=== PATIENT | male | born 1955 | race Caucasian/White ===

== ENCOUNTER 2017-05-01 06:22 | Day surgery (SDC) | payer BC ==
--- NOTE | ~2017-05-01 | EGD ---
EGD REPORT [facility] [address] [place] [address] NAME: SHERWIN WHEELER : [birth year] STATUS : REG [facility]#: [id number] AGE: 62 ADM/REG DATE : 05/01/17 MR#: [id number] REPORT SERV DATE: 05/01/17 DICTATED BY: ELZBIETA WIGGINS DATE: 05/01/17 REPORT STATUS : Draft TRANSCRIBED BY: [facility] DATE: 05/01/17 Endoscopy Center Patient Name: Sherwin Wheeler Date of : 1955 Attending MD: ELZBIETA WIGGINS MD Procedure Date No Time: 05/01/2017 Procedure: Colonoscopy Indications: Screening for colorectal malignant neoplasm Referring MD: Juan CLARK MD Medicines: as per anesthesia Complications: No immediate complications. Procedure: Pre-Anesthesia Assessment: - ASA Grade Assessment: III - A patient with severe systemic disease. After I obtained informed consent, the scope was passed under direct vision. Throughout the procedure, the patient's blood pressure, pulse, and oxygen saturations were monitored continuously. The PCF [id number] was introduced through the anus and advanced to the cecum, identified by appendiceal orifice and ileocecal valve. The colonoscopy was performed without difficulty. The patient tolerated the procedure. The quality of the bowel preparation was adequate to identify polyps. Findings: The perianal and digital rectal examinations were normal. Internal hemorrhoids were found during endoscopy and were mild. Impression: - Internal hemorrhoids. Recommendation: - Repeat colonoscopy in 10 years for surveillance. Procedure Code(s): --- Professional --- 92423, Colonoscopy, flexible, proximal to splenic flexure; diagnostic, with or without collection of specimen(s) by brushing or washing, with or without colon decompression (separate procedure) Diagnosis Code(s): --- Professional --- K64.8, Other hemorrhoids Z12.11, Encounter for screening for malignant neoplasm of colon CPT copyright 2013 [employer]. All rights reserved. EGD REPORT [facility] [address] [address] NAME: SHERWIN WHEELER : [birth year] STATUS : REG [facility]#: [id number] AGE: 62 ADM/REG DATE : 05/01/17 MR#: [id number] REPORT SERV DATE: 05/01/17 DICTATED BY: ELZBIETA WIGGINS. DATE: 05/01/17 REPORT STATUS : Draft TRANSCRIBED BY: [employer] DATE: 05/01/17 The codes documented in this report are preliminary and upon accounts payable analyst review may be revised to meet current compliance requirements. ELZBIETA WIGGINS MD 05/01/2017 8:04 AM This report has been signed electronically. Number of Addenda: 0 Note Initiated On: 05/01/2017 7:36 AM Scope Withdrawal Time 0 hours 6 minutes 47 seconds [address] [id number]
--- NOTE | ~2017-05-01 | EGD ---
EGD REPORT [facility] [address] [place] [address] NAME: GERONIMO WHEELER : [birth year] STATUS : REG [facility]#: [id number] AGE: 62 ADM/REG DATE : 05/01/17 MR#: [id number] REPORT SERV DATE: 05/01/17 DICTATED BY: ELZBIETA WIGGINS DATE: 05/01/17 REPORT STATUS : Draft [facility]ANSCRIBED [facility]: [facility] DATE: 05/01/17 Endoscopy Center Patient Name: Geronimo Wheeler Date of : 1955 Attending MD: ELZBIETA WIGGINS MD Procedure Date No Time: 05/01/2017 Procedure: Upper GI endoscopy Indications: Heartburn, Suspected esophageal reflux, Weight loss Referring MD: Juan CLARK MD Medicines: as per anesthesia Complications: No immediate complications. Procedure: Pre-Anesthesia Assessment: - ASA Grade Assessment: III - A patient with severe systemic disease. After obtaining informed consent, the endoscope was passed under direct vision. Throughout the procedure, the patient's blood pressure, pulse, and oxygen saturations were monitored continuously. The GIF [id number] was introduced through the mouth, and advanced to the third part of duodenum. The upper GI endoscopy was accomplished without difficulty. The patient tolerated the procedure. Findings: The examined esophagus was normal. The entire examined stomach was normal. The cardia and gastric fundus were normal on retroflexion. The examined duodenum was normal. Impression: - Normal esophagus. - Normal stomach. - Normal examined duodenum. Recommendation: - Follow an antireflux regimen. - Continue present medications. Procedure Code(s): --- Professional --- 37316, Esophagogastroduodenoscopy, flexible, transoral; diagnostic, including collection of specimen(s) by brushing or washing, when performed (separate procedure) Diagnosis Code(s): --- Professional --- R12, Heartburn R63.4, Abnormal weight loss EGD REPORT [facility] [address] [address] NAME: GERONIMO WHEELER : [birth year] STATUS : REG [facility] [place]#: [id number] AGE: 62 ADM/REG DATE : 05/01/17 MR#: [id number] REPORT SERV DATE: 05/01/17 DICTATED BY: ELZBIETA WIGGINS. DATE: 05/01/17 REPORT STATUS : Draft TRANSCRIBED BY: [employer] DATE: 05/01/17 CPT copyright 2013 [employer]. All rights reserved. The codes documented in this report are preliminary and upon real estate professional review may be revised to meet current compliance requirements. ELZBIETA WIGGINS MD 05/01/2017 7:49 AM This report has been signed electronically. Number of Addenda: 0 Note Initiated On: 05/01/2017 7:35 AM Scope Withdrawal Time 0 hours 0 minutes 0 seconds [address] [id number]
[~2017-05-01 06:22] MED LIST: P5 PO; PRAVACHOL40 MG PO; PRINZIDE1 TA1 PO
[2017-08-14] MEDS ORDERED: PLAQ200B PO (09:16)
[2017-08-14] MEDS ORDERED: GERITOL (09:25)
[2017-08-18] MEDS ORDERED: PCET PO (13:05)
== END 2017-05-01 23:59 | disposition home or self-care (01) ==
LOC: DMU 06:22
PROVIDERS: Internal Medicine Gastroenterology
PROC: 0DJD8ZZ Inspection of Lower Intestinal Tract, Via Natural or Artificial Opening Endoscopic (ICD-10-PCS; principal; 2017-05-01 07:30)
PROC: 0DJ08ZZ Inspection of Upper Intestinal Tract, Via Natural or Artificial Opening Endoscopic (ICD-10-PCS; 2017-05-01 07:30)
DX: Z12.11 Encounter for screening for malignant neoplasm of colon (principal); K64.8 Other hemorrhoids; I10 Essential (primary) hypertension; E11.9 Type 2 diabetes mellitus without complications; R12 Heartburn; R63.4 Abnormal weight loss; E78.00 Pure hypercholesterolemia, unspecified; K21.9 Gastro-esophageal reflux disease without esophagitis; Z98.890 Other specified postprocedural states; Z79.899 Other long term (current) drug therapy; Z79.52 Long term (current) use of systemic steroids
CPT/HCPCS: 82962